=== PATIENT | female | born 1990 ===

== ENCOUNTER 2023-01-29 08:45 | Outpatient (CLI) | payer OTHER | END 2023-01-29 10:04 | disposition home or self-care (01) | LOC: PRENATAL 08:45 | PROVIDERS: ATTEND Obstetrics & Gynecology Maternal & Fetal Medicine | DX: O35.9XX0 Maternal care for (suspected) fetal abnormality and damage, unspecified, not applicable or unspecified (principal); O34.10 Maternal care for benign tumor of corpus uteri, unspecified trimester; O24.419 Gestational diabetes mellitus in pregnancy, unspecified control; Z3A.19 19 weeks gestation of pregnancy ==

== ENCOUNTER 2023-03-27 13:45 | Outpatient (CLI) | payer OTHER | END 2023-03-27 15:44 | disposition home or self-care (01) | LOC: PRENATAL 13:45 | PROVIDERS: ATTEND Obstetrics & Gynecology Maternal & Fetal Medicine | DX: O26.849 Uterine size-date discrepancy, unspecified trimester (principal); O24.419 Gestational diabetes mellitus in pregnancy, unspecified control; O34.10 Maternal care for benign tumor of corpus uteri, unspecified trimester; Z3A.27 27 weeks gestation of pregnancy ==

== ENCOUNTER 2023-04-27 10:43 | Outpatient (CLI) | payer OTHER | END 2023-04-27 11:55 | disposition home or self-care (01) | LOC: PRENATAL 10:43 | PROVIDERS: ATTEND Obstetrics & Gynecology Maternal & Fetal Medicine | DX: O36.8199 Decreased fetal movements, unspecified trimester, other fetus (principal); O24.419 Gestational diabetes mellitus in pregnancy, unspecified control; O34.10 Maternal care for benign tumor of corpus uteri, unspecified trimester; Z3A.32 32 weeks gestation of pregnancy ==